=== PATIENT | male | born 1970 | race Caucasian/White ===

== ENCOUNTER 2016-10-05 22:22 | Emergency (ER) | payer BC, OTHER ==
[2016-10-05 22:44] VITALS: BMI 27.7
[2016-10-05 22:54] LABS: BASOPHIL 0.2 % (0-2.0); EOSINOPHIL 0.4 % (0-4.5); MCH 26.2 pg (25.7-33.7); MCHC 31.8 g/dl (32.0-35.9); MEAN CELL VOLUME 82.5 fl (80-96); MEAN PLT VOLUME 8.8 fl (7.5-11.1); NEUTROPHILS 87.1 % (42.8-82.8); PLATELET COUNT 161 K/MM3 (134-434); RDW 17.3 % (11.9-15.9); WHITE BLOOD COUNT 5.7 K/mm3 (4.0-10.0)
--- NOTE | 2016-10-05 22:57 | PDOC ---
History of Present Illness - General Chief Complaint: Chest Pain Stated Complaint: CHEST PAIN/YFD Time Seen by Provider: 10/05/16 22:29 History Source: Patient Exam Limitations: No Limitations - History of Present Illness Initial Comments: 10/05/16 22:53 46yo Male patient w/ PmHx: Heart disease, HLD presents to ED c/o chest pain/ chest tightness. Patient states while working, he did not feel well. He states having chest tightness, and weakness. He reports having 4 bowel movements today which is unusual for him. Patient then went to bed. He got up to use bathroom and felt nauseous, dizzy, chills, lightheaded, numbness down left arm. He called a friend who brought him to ED for evaluation. Patient states his symptoms have since resolved. Denies any other complaints at this time. Patient reports having a full cardiac work-up 1 year ago and was completely normal. Cardiology- Dr. Kwan. Presenting Symptoms: Chest Pain, Dizziness Timing/Duration: reports: intermittent Severity/Quality: reports: tightness Location: reports: substernal Chest Pain Radiation: reports: arms (Left) Activities at Onset: reports: no specific activity Prior Chest Pain/Cardiac Workup: reports: Cardiac Cath, Stress Test. denies: Heart Attack Past History - Travel Traveled outside of the country in the last 30 days: No Close contact w/someone who was outside of country & ill: No - Past Medical History Allergies/Adverse Reactions: Allergies Allergy/AdvReac Type Severity Reaction Status Date / Time No Known Allergies Allergy Verified 10/06/13 11:01 Home Medications: Ambulatory Orders Aspirin [ASA -] 81 mg PO ONCE 09/14/12 Colesevelam HCl [Welchol] 625 mg PO DAILY 09/14/12 Lorazepam [Ativan] 0.5 mg PO TID PRN #9 tablet MDD 3 TAB 10/06/16 Hypercholesterolemia: Yes - Surgical History Neurologic Surgery: Yes (RT SHOULDER) - Psycho/Social/Smoking Cessation Hx Anxiety: No Suicidal Ideation: No Smoking Status: No Smoking History: Never smoked Have you smoked in the past 12 months: No Number of Cigarettes Smoked Daily: 0 Information on smoking cessation initiated: No Hx Alcohol Use: No Drug/Substance Use Hx: No Cardiac Specific PMH - Complaint Specific PMHX Abdominal Aortic Aneurysm: No Angina: No Cardiac Arrhythmia: No Cardiac Stent: No GERD: No Myocardial Infarction: No Pacemaker: No Pulmonary Embolus: No Valvular Heart Disease: No Peripheral Vascular Disease: No Review of Systems - Review of Systems Able to Perform ROS?: Yes Is the patient limited Khmer proficient: No Constitutional: Yes: Chills. No: Fever Respiratory: No: Cough, Shortness of Breath, SOB with Exertion, SOB at Rest, Stridor, Wheezing, Hemoptysis Cardiac (ROS): Yes: Chest Pain, Lightheadedness, Chest Tightness. No: Palpitations, Syncope ABD/GI: Yes: Nausea. No: Constipated, Diarrhea, Poor Appetite, Poor Fluid Intake, Vomiting, Abdominal cramping : No: Burning, Dysuria, Flank Pain, Hematuria Musculoskeletal: No: Back Pain Integumentary: No: Dryness, Erythema, Flushing, Rash, Sweating Neurological: Yes: Numbness, Tingling, Weakness, Dizziness. No: Headache, Paresthesia, Seizure, Tremors, Unsteady Gait, Ataxia Psychiatric: Yes: Anxiety. No: Depression All Other Systems: Reviewed and Negative *Physical Exam - Vital Signs Last Vital Signs Temp Pulse Resp BP Pulse Ox 100.6 F H 86 18 113/61 96 10/06/16 05:55 10/05/16 23:51 10/05/16 23:51 10/05/16 23:51 10/05/16 23:51 - Physical Exam General Appearance: Yes: Nourished, Appropriately Dressed. No: Apparent Distress, Mild Distress, Moderate Distress, Severe Distress Neck: positive: Trachea midline, Normal Thyroid, Supple. negative: Rigid, Decreased range of motion, Stridor, Lymphadenopathy (R), Lymphadenopathy (L) Respiratory/Chest: positive: Lungs Clear, Normal Breath Sounds. negative: Chest Tender, Respiratory Distress, Accessory Muscle Use, Labored Respiration, Rapid RR, Crackles, Rales, Stridor, Wheezing Cardiovascular: positive: Regular Rhythm, Regular Rate. negative: Edema, JVD Gastrointestinal/Abdominal: positive: Normal Bowel Sounds, Soft. negative: Distended, Guarding, Rebound, Tenderness, Hernia, Mass Musculoskeletal: positive: Normal Inspection. negative: CVA Tenderness, Decreased Range of Motion, Vertebral Tenderness Extremity: positive: Normal Capillary Refill, Normal Inspection, Normal Range of Motion. negative: Pedal Edema, Swelling, Calf Tenderness, Erythema, Inflammation Integumentary: positive: Normal Color, Dry, Warm Neurologic: positive: enterostomal nurse II-XII NML intact, Fully Oriented, Alert, Normal Mood/ Affect, Normal Response, Motor Strength 09/11 ED Treatment Course - LABORATORY CBC & Chemistry Diagram: 10/05/16 22:25 10/05/16 22:25 - ADDITIONAL ORDERS Additional order review: Laboratory Results 10/06/16 10/06/16 10/05/16 05:44 01:15 23:00 INR Sodium Potassium Chloride Carbon Dioxide Anion Gap BUN Creatinine Creat Clearance w eGFR Random Glucose Calcium Total Bilirubin AST ALT Alkaline Phosphatase Creatine Kinase 138 Creatine Kinase Index CK-MB (CK-2) CK-MB (CK-2) Rel Index Troponin I < 0.02 Total Protein Albumin Total Amylase 76 Lipase 177 Urine Color Straw Urine Appearance Clear Urine pH 6.0 Urine Protein Negative Urine Glucose (UA) Negative Urine Ketones Trace H Urine Blood Negative Urine Nitrite Negative Urine Bilirubin Negative Urine Urobilinogen Negative Ur Leukocyte Esterase Negative 10/05/16 10/05/16 10/05/16 22:25 22:25 22:25 INR 1.04 Sodium 141 Potassium 4.1 Chloride 104 Carbon Dioxide 32 Anion Gap 5 L BUN 22 H Creatinine 1.3 Creat Clearance w eGFR 59.43 Random Glucose 124 H Calcium 8.5 Total Bilirubin 0.3 AST 17 ALT 25 Alkaline Phosphatase 53 Creatine Kinase 224 Creatine Kinase Index 0.8 CK-MB (CK-2) 1.846 CK-MB (CK-2) Rel Index Cancelled Troponin I < 0.02 Total Protein 6.7 Albumin 3.8 Total Amylase Lipase Urine Color Urine Appearance Urine pH Urine Protein Urine Glucose (UA) Urine Ketones Urine Blood Urine Nitrite Urine Bilirubin Urine Urobilinogen Ur Leukocyte Esterase 10/05/16 22:25 RBC 5.35 MCV 82.5 MCHC 31.8 L RDW 17.3 H MPV 8.8 Neutrophils % 87.1 H Lymphocytes % 6.8 L Monocytes % 5.5 Eosinophils % 0.4 Basophils % 0.2 - RADIOLOGY Radiology Studies Ordered: Category Date Time Status ABDOMEN & PELVIS CT WITH CONTR [CT] Stat CT Scan 10/06/16 01:40 Taken CHEST CTA [CT] Stat CT Scan 10/06/16 03:12 Taken - Medications Given in the ED: ED Medications Discontinued Medications Generic Name Dose Route Start Last Admin Trade Name Freq PRN Reason Stop Dose Admin Acetaminophen 1,000 mg 10/06/16 01:16 10/06/16 01:25 Tylenol - PO 10/06/16 01:17 1,000 mg ONCE ONE Administration Sodium Chloride 1,000 mls @ 1,000 mls/hr 10/05/16 23:01 10/05/16 23:48 Normal Saline - IV 10/06/16 00:00 1,000 mls/hr ASDIR STA Administration Lorazepam 1 mg 10/05/16 23:01 10/05/16 23:22 Ativan - PO 10/05/16 23:02 1 mg ONCE ONE Administration Morphine Sulfate 2 mg 10/06/16 03:12 10/06/16 03:16 Morphine Injection - IVPUSH 10/06/16 03:13 2 mg ONCE ONE Administration Ondansetron HCl 4 mg 10/05/16 23:01 10/05/16 23:48 Zofran Injection IVPB 10/05/16 23:02 4 mg ONCE ONE Administration *DC/Admit/Observation/Transfer Diagnosis at time of Disposition: Atypical chest pain, Gastroenteritis - Discharge Dispostion Disposition: HOME Condition at time of disposition: Improved Admit: No - Prescriptions Prescriptions: Lorazepam [Ativan] 0.5 mg PO TID PRN #9 tablet MDD 3 TAB PRN Reason: Anxiety - Patient Instructions Printed Discharge Instructions: DI for Atypical Chest Pain Additional Instructions: FOLLOW UP WITH YOUR PRIMARY CARE PROVIDER THIS WEEK. CALL TO SCHEDULE APPOINTMENT. MOTRIN OR TYLENOL FOR PAIN NEEDED. DRINK PLENTY FLUIDS AND REST. NO WORK X 2 DAYS. ALSO, FOLLOW UP WITH YOUR ROUTE DELIVERY DRIVER. AVOID ALCOHOL, SPICY FOODS, AND FOODS WITH CAFFEINE. Print Language: ARMENIAN - Post Discharge Activity Work/School Note: Back to Work
[2016-10-05] MEDS ORDERED: SODIUM CHLORIDE 1,000 ML IV STA (23:01)
[2016-10-05] MEDS ORDERED: LORazepam 1 MG TABLET PO ONE (23:01)
[2016-10-05] MEDS ORDERED: ONDANSETRON 4 MG/2 ML VIAL IVPB ONE (23:01)
[2016-10-05 23:06] LABS: INR 1.04 (0.82-1.09); PROTHROMBIN TIME (PATIENT) 11.5 SEC (9.98-11.88)
[2016-10-05] MEDS ORDERED: LORazepam 0.5 MG TABLET ONE (23:16)
[2016-10-05 23:20] LABS: ALBUMIN 3.8 g/dl (3.4-5.0); ANION GAP 5 (8-16); BILIRUBIN,TOTAL 0.3 mg/dL (0.2-1.0); CALCIUM 8.5 mg/dL (8.5-10.1); CO2 32 mmol/L (21-32); COCKROFT - GAULT 95.66; CREATININE 1.3 mg/dL (0.7-1.3); GLUCOSE,RANDOM 124 mg/dL (74-106); SGOT/AST 17 U/L (15-37); SGPT/ALT 25 U/L (12-78); TOT PROT 6.7 g/dl (6.4-8.2)
[2016-10-05 23:22] LABS: ALK PHOS 53 U/L (45-117); TROPONIN I < 0.02 ng/ml (0.00-0.05)
[2016-10-05 23:30] LABS: AMYLASE 76 U/L (25-115)
[2016-10-05] MEDS ORDERED: ONDANSETRON 4 MG/2 ML VIAL ONE (23:37)
[2016-10-06] MEDS ORDERED: ACETAMINOPHEN 500 MG TABLET (FP) PO ONE (01:16)
[2016-10-06] MEDS ORDERED: ACETAMINOPHEN 325 MG TABLET (FP) ONE (01:18)
[2016-10-06 01:22] LABS: URINE APPEARANCE CLEAR; URINE BILIRUBIN NEGATIVE (NEGATIVE); URINE BLOOD NEGATIVE (NEGATIVE); URINE COLOR STRAW; URINE GLUCOSE (UA) NEGATIVE (NEGATIVE); URINE KETONE TRACE (NEGATIVE); URINE LEUK ESTERASE NEGATIVE (NEGATIVE); URINE NITRITE NEGATIVE (NEGATIVE); URINE PROTEIN NEGATIVE (NEGATIVE); URINE UROBILINOGEN NEGATIVE E.U./dl (0.2-1.0)
[2016-10-06] MEDS ORDERED: morphine CARPU-JECT 2 MG/1 ML DISP.SYRIN ONE (02:57)
[2016-10-06] MEDS ORDERED: morphine CARPU-JECT 2 MG/1 ML DISP.SYRIN IVPUSH ONE (03:12)
[2016-10-06 05:56] VITALS: TEMP 100.6
[2016-10-06] MEDS ORDERED: IBUPROFEN 400 MG TABLET (FP) PO ONE ×2 (06:02→06:31)
[2016-10-06 06:13] LABS: TROPONIN I < 0.02 ng/ml (0.00-0.05)
[2016-10-06 06:37] VITALS: BP 125/79; PULSE 88
--- NOTE | 2016-10-06 14:08 | EKG ---
Test Reason : Blood Pressure : / mmHG Vent. Rate : 068 BPM Atrial Rate : 068 BPM P-R Int : 154 ms QRS Dur : 086 ms QT Int : 372 ms P-R-T Axes : 046 067 024 degrees QTc Int : 395 ms NORMAL SINUS RHYTHM MINIMAL VOLTAGE CRITERIA FOR LVH, MAY BE NORMAL VARIANT NONSPECIFIC T WAVE ABNORMALITY ABNORMAL ECG WHEN COMPARED WITH ECG OF 29-OCT-2015 14:20, Confirmed by CAIN TALBOT, MARISOL ([id number]) on 10/06/2016 2:08:34 PM Referred By: Confirmed By:MARISOL BARLOW MD
== END 2016-10-06 09:46 | disposition home or self-care (01) ==
LOC: JER 22:22
PROC: 3E033NZ Introduction of Analgesics, Hypnotics, Sedatives into Peripheral Vein, Percutaneous Approach (ICD-10-PCS; principal; 2016-10-05)
PROC: 3E033GC Introduction of Other Therapeutic Substance into Peripheral Vein, Percutaneous Approach (ICD-10-PCS; 2016-10-05)
DX: R07.89 Other chest pain (principal); K52.9 Noninfective gastroenteritis and colitis, unspecified
CPT/HCPCS: 36415; 71010-TC; 71275-TC; 74177-TC; 80053; 81003; 82150; 82550; 82553; 83605; 83690; 84484; 85025; 85610; 93005; 93010; 99284-25

== ENCOUNTER 2021-03-23 14:31 | Inpatient (IN) | payer BC, OTHER ==
[2021-03-23 14:39] VITALS: BMI 27.0
[2021-03-23] MEDS ORDERED: ACETAMINOPHEN 325 MG TABLET (FP) PO ONE (15:20)
[2021-03-23] MEDS ORDERED: morphine CARPU-JECT 4 MG/1 ML DISP.SYRIN IVPUSH ONE (15:26)
[2021-03-23] MEDS ORDERED: ONDANSETRON 4 MG/2 ML VIAL IVPUSH ONE (15:43)
[2021-03-23] MEDS ORDERED: ONDANSETRON 4 MG/2 ML VIAL ONE (15:44)
[2021-03-23] MEDS ORDERED: morphine SULFATE 4 MG/ML VIAL ONE ×2 (15:44→17:25)
[2021-03-23 16:05] LABS: BASO % 0.6 % (0-2.0); EOS % 0.3 % (0-4.5); HEMATOCRIT 42.4 % (35.4-49); HEMOGLOBIN 14.5 GM/dL (11.7-16.9); LYMPH % 13.9 % (8-40); MCH 30.7 pg (25.7-33.7); MCHC 34.3 g/dl (32.0-35.9); MEAN CELL VOLUME 89.7 fl (80-96); MEAN PLT VOLUME 9.4 fl (7.5-11.1); MONO % 5.7 % (3.8-10.2); NEUT % 79.5 % (42.8-82.8); PLATELET COUNT 250 10^3/uL (134-434); RBC 4.72 M/mm3 (4.00-5.60)
[2021-03-23] MEDS ORDERED: SODIUM CHLORIDE 1,000 ML IV STA (16:06)
[2021-03-23 16:21] LABS: ALBUMIN 4.1 g/dl (3.4-5.0); BLOOD UREA NITROGEN 16.7 mg/dL (7-18); CALCIUM 9.4 mg/dL (8.5-10.1)
[2021-03-23 16:24] LABS: CREATININE 1.8 mg/dL (0.55-1.3)
[2021-03-23 16:26] LABS: BILIRUBIN,TOTAL 0.2 mg/dL (0.2-1); TOT PROT 7.6 g/dl (6.4-8.2)
[2021-03-23] MEDS ORDERED: morphine CARPU-JECT 2 MG/1 ML DISP.SYRIN IVPUSH ONE (17:22)
[2021-03-23 17:23] LABS: EPI CELLS 11 /uL (0-25.1); HYALINE CASTS 17 /uL (0-3.1); URINE APPEARANCE TURBID; URINE BILIRUBIN 1+ (NEGATIVE); URINE COLOR RED; URINE GLUCOSE (UA) NEGATIVE (NEGATIVE); URINE KETONE NEGATIVE (NEGATIVE); URINE LEUK ESTERASE 1+ (NEGATIVE); URINE NITRITE POSITIVE (NEGATIVE); URINE PROTEIN 2+ (NEGATIVE); URINE RBC 1184 /uL (0-23.9); URINE UROBILINOGEN 0.2 mg/dL (0.2-1.0); URINE WBC 43 /uL (0-25.8)
[2021-03-23] MEDS ORDERED: CEFTRIAXONE 1,000 MG in DEXTROSE 5%-WATER - 50 ML IVPB ONE (17:28)
[2021-03-23] MEDS ORDERED: CEFTRIAXONE 1 GM/50 ML BAG ONE (17:44)
[2021-03-23 17:58] LABS: URINE BACTERIA 0 /uL (0-1359)
[2021-03-23] MEDS ORDERED: TAMSULOSIN HCL 0.4 MG CAP PO ONE (19:25)
[2021-03-23] MEDS ORDERED: morphine CARPU-JECT 2 MG/1 ML DISP.SYRIN IVPUSH PRN (19:26)
[2021-03-23] MEDS ORDERED: ACETAMINOPHEN 1000 MG/100 ML VIAL IVPB PRN (19:26)
[2021-03-23] MEDS ORDERED: TAMSULOSIN HCL 0.4 MG CAP ONE (19:52)
[2021-03-23] MEDS ORDERED: morphine SULFATE 4 MG/ML VIAL IVPUSH PRN (21:08)
[2021-03-23] MEDS ORDERED: LACTATED RINGERS SOLUTION 1,000 ML/1,000 ML INFUS.BAG IV SCH (21:15)
[2021-03-23] MEDS ORDERED: SENNOSIDES 8.6MG TABLET (FP) PO ONE (21:31)
[2021-03-23] MEDS ORDERED: METOPROLOL TARTRATE 25 MG TABLET (FP) ONE (21:31)
[2021-03-23] MEDS ORDERED: SENNOSIDES 8.6MG TABLET (FP) PO SCH (22:00)
[2021-03-23] MEDS: METOPROLOL TARTRATE 25 MG TABLET (FP) PO SCH (23:18)
[2021-03-24] MEDS ORDERED: HEPARIN NA (PORCINE) 5,000 UNITS/ML 1ML VIAL SQ SCH (02:00)
[2021-03-24] MEDS ORDERED: TAMSULOSIN HCL 0.4 MG CAP PO ONE (06:57)
[2021-03-24] MEDS ORDERED: ASPIRIN 81 MG CHEWABLE TABLETS PO ONE (07:34)
[2021-03-24 08:31] LABS: HEMATOCRIT 35.4 % (35.4-49); HEMOGLOBIN 12.4 GM/dL (11.7-16.9); MCH 30.9 pg (25.7-33.7); MCHC 34.9 g/dl (32.0-35.9); MEAN CELL VOLUME 88.5 fl (80-96); MEAN PLT VOLUME 9.3 fl (7.5-11.1); PLATELET COUNT 194 10^3/uL (134-434); RDW 13.8 % (11.9-15.9)
[2021-03-24 09:04] LABS: CALCIUM 8.6 mg/dL (8.5-10.1)
[2021-03-24 09:05] LABS: BLOOD UREA NITROGEN 12.8 mg/dL (7-18)
[2021-03-24 09:08] LABS: CREATININE 1.4 mg/dL (0.55-1.3)
[2021-03-24 09:09] LABS: BILIRUBIN,TOTAL 0.4 mg/dL (0.2-1); TOT PROT 5.9 g/dl (6.4-8.2)
[2021-03-24] MEDS ORDERED: DEXTROSE 5%-WATER - 50 ML IVPB ONE (09:20)
[2021-03-24] MEDS ORDERED: cefTRIAXone SODIUM 1 GM VIAL ONE (09:20)
[2021-03-24] MEDS: METOPROLOL TARTRATE 25 MG TABLET (FP) PO SCH ×2 (09:24→21:36)
[2021-03-24] MEDS ORDERED: ASPIRIN COATED 81 MG TABLET.EC PO SCH (10:00)
[2021-03-24] MEDS ORDERED: CEFTRIAXONE 1 GM in DEXTROSE 5%-WATER - 50 ML IVPB SCH (10:00)
[2021-03-24] MEDS ORDERED: ASPIRIN 81 MG CHEWABLE TABLETS PO SCH (10:00)
[2021-03-24] MEDS ORDERED: ONDANSETRON 4 MG/2 ML VIAL IVPUSH PRN ×2 (13:24→15:17)
[2021-03-24] MEDS ORDERED: LACTATED RINGERS SOLUTION 1,000 ML IV SCH ×2 (13:30→15:17)
[2021-03-24] MEDS ORDERED: MIDAZOLAM HCL 2 MG/2 ML SINGLE DOSE VIAL ONE (13:33)
[2021-03-24] MEDS ORDERED: PROPOFOL 20 ML ONE (13:33)
[2021-03-24] MEDS ORDERED: DEXAMETHASONE SOD PHOSPHATE 4 MG/1 ML VIAL ONE (14:26)
[2021-03-24] MEDS ORDERED: ACETAMINOPHEN 1000 MG/100 ML VIAL IVPB PRN ×2 (15:17→21:39)
[2021-03-24] MEDS: LACTATED RINGERS SOLUTION 1,000 ML/1,000 ML INFUS.BAG IV SCH (16:01)
[2021-03-24] MEDS: morphine SULFATE 4 MG/ML VIAL IVPUSH PRN (18:03)
[2021-03-24] MEDS: SENNOSIDES 8.6MG TABLET (FP) PO SCH (21:36)
[2021-03-25] MEDS: morphine SULFATE 4 MG/ML VIAL IVPUSH PRN ×3 (03:03→10:57)
[2021-03-25] MEDS: LACTATED RINGERS SOLUTION 1,000 ML/1,000 ML INFUS.BAG IV SCH (07:55)
[2021-03-25] MEDS ORDERED: cefTRIAXone SODIUM 1 GM VIAL ONE (09:29)
[2021-03-25] MEDS ORDERED: DEXTROSE 5%-WATER - 50 ML IVPB ONE (09:29)
[2021-03-25] MEDS: CEFTRIAXONE 1 GM in DEXTROSE 5%-WATER - 50 ML IVPB SCH (09:30)
[2021-03-25] MEDS: METOPROLOL TARTRATE 25 MG TABLET (FP) PO SCH ×2 (09:30→21:44)
[2021-03-25] MEDS: ASPIRIN COATED 81 MG TABLET.EC PO SCH (09:30)
[2021-03-25 09:58] LABS: BASO % 0.4 % (0-2.0); EOS % 0.2 % (0-4.5); HEMOGLOBIN 12.1 GM/dL (11.7-16.9); MCH 30.7 pg (25.7-33.7); MCHC 34.5 g/dl (32.0-35.9); MEAN CELL VOLUME 88.9 fl (80-96); MEAN PLT VOLUME 9.5 fl (7.5-11.1); MONO % 5.1 % (3.8-10.2); NEUT % 76.3 % (42.8-82.8); PLATELET COUNT 212 10^3/uL (134-434); RBC 3.94 M/mm3 (4.00-5.60); WHITE BLOOD COUNT 9.3 K/mm3 (4.0-10.0)
[2021-03-25] MEDS ORDERED: ASPIRIN COATED 81 MG TABLET.EC PO SCH (10:00)
[2021-03-25 11:04] LABS: CREATININE 1.3 mg/dL (0.55-1.3); PHOSPHOROUS 3.1 mg/dL (2.5-4.9)
[2021-03-25 11:05] LABS: BILIRUBIN,TOTAL 0.4 mg/dL (0.2-1)
[2021-03-25 11:06] LABS: BLOOD UREA NITROGEN 16.2 mg/dL (7-18); CALCIUM 8.7 mg/dL (8.5-10.1); MAGNESIUM 1.9 mg/dL (1.8-2.4)
[2021-03-25] MEDS: ENOXAPARIN NA (PORCINE) 40 MG/0.4 ML DISP.SYRIN SQ SCH (13:49)
[2021-03-25] MEDS: oxyCODONE HCL 5 MG TABLET PO PRN ×2 (16:29→21:42)
[2021-03-25] MEDS: SENNOSIDES 8.6MG TABLET (FP) PO SCH (21:44)
[2021-03-26] MEDS: oxyCODONE HCL 5 MG TABLET PO PRN (04:34)
[2021-03-26] MEDS ORDERED: SODIUM PHOSPHATE/NA BIPHOS 133 ML ENEMA RC ONE (08:48)
[2021-03-26] MEDS ORDERED: cefTRIAXone SODIUM 1 GM VIAL ONE (09:38)
[2021-03-26] MEDS ORDERED: DEXTROSE 5%-WATER - 50 ML IVPB ONE (09:39)
[2021-03-26] MEDS: METOPROLOL TARTRATE 25 MG TABLET (FP) PO SCH (09:56)
[2021-03-26] MEDS: ASPIRIN COATED 81 MG TABLET.EC PO SCH (09:56)
[2021-03-26] MEDS: CEFTRIAXONE 1 GM in DEXTROSE 5%-WATER - 50 ML IVPB SCH (09:59)
[2021-03-26] MEDS: ENOXAPARIN NA (PORCINE) 40 MG/0.4 ML DISP.SYRIN SQ SCH (09:59)
[2021-03-26] MEDS ORDERED: PHENAZOPYRIDINE HCL 100 MG TABLET (FP) PO ONE (13:00)
[2021-03-26 13:29] VITALS: BP 139/80; PULSE 53; TEMP 98.5
[2021-04-04 09:11] LABS: SIZE 3X3
[2021-04-04 09:12] LABS: CA OXALATE MONOHYDR. 80%; WEIGHT 33
== END 2021-03-26 15:38 | disposition home or self-care (01) | DRG 657 ==
LOC: JER 14:31 → JERBED 18:31 → J6S 21:52
PROVIDERS: ADMIT Internal Medicine; ATTEND Internal Medicine
PROC: 0TC68ZZ Extirpation of Matter from Right Ureter, Via Natural or Artificial Opening Endoscopic (ICD-10-PCS; principal; 2021-03-24 13:00)
PROC: 0T768DZ Dilation of Right Ureter with Intraluminal Device, Via Natural or Artificial Opening Endoscopic (ICD-10-PCS; 2021-03-24 13:00)
PROC: 0TBB8ZX Excision of Bladder, Via Natural or Artificial Opening Endoscopic, Diagnostic (ICD-10-PCS; 2021-03-24 13:00)
PROC: 0TJB8ZZ Inspection of Bladder, Via Natural or Artificial Opening Endoscopic (ICD-10-PCS; 2021-03-24 13:00)
DX: C67.9 Malignant neoplasm of bladder, unspecified (principal); N13.6 Pyonephrosis; N17.9 Acute kidney failure, unspecified; I25.10 Atherosclerotic heart disease of native coronary artery without angina pectoris; E78.5 Hyperlipidemia, unspecified; I12.9 Hypertensive chronic kidney disease with stage 1 through stage 4 chronic kidney disease, or unspecified chronic kidney disease; N18.9 Chronic kidney disease, unspecified; Z95.5 Presence of coronary angioplasty implant and graft
CPT/HCPCS: 36415; 74176-TC; 76000-TC-FY; 80053; 81003; 82360; 83036; 83735; 84100; 85025; 85027; 87086; 88300-TC; 88305-TC; 93005; 93010; 94760; 99285-25; C9803; J0131; U0003; U0005

== ENCOUNTER 2021-05-06 04:35 | Day surgery (SDC) | payer BC ==
[2021-05-05 17:09] VITALS: BMI 27.7
[2021-05-06] MEDS ORDERED: PROPOFOL 20 ML ONE ×3 (12:42)
[2021-05-06] MEDS ORDERED: LIDOCAINE HCL/PF 2% SDV 5ML VIAL ONE (12:42)
[2021-05-06] MEDS ORDERED: KETOROLAC TROMETHAMINE 30 MG/1 ML VIAL ONE (12:42)
[2021-05-06] MEDS ORDERED: DEXAMETHASONE SOD PHOSPHATE 4 MG/1 ML VIAL ONE (12:42)
[2021-05-06] MEDS ORDERED: ceFAZolin SODIUM 1 GM VIAL ONE (12:42)
[2021-05-06] MEDS ORDERED: MIDAZOLAM HCL 2 MG/2 ML SINGLE DOSE VIAL ONE (12:42)
[2021-05-06] MEDS ORDERED: SODIUM CHLORIDE 0.9% P/F 10 ML VIAL IJ ONE (12:42)
[2021-05-06] MEDS ORDERED: ONDANSETRON 4 MG/2 ML VIAL IVPUSH PRN (12:51)
[2021-05-06] MEDS ORDERED: oxyCODONE HCL 5 MG TABLET PO PRN ×2 (12:51)
[2021-05-06] MEDS ORDERED: LACTATED RINGERS SOLUTION 1,000 ML IV SCH (13:00)
[2021-05-06] MEDS ORDERED: SUCCINYLCHOLINE CHLORIDE 200 MG/10 ML SYRINGE ONE (13:04)
[2021-05-06] MEDS ORDERED: ceFAZolin SODIUM 1 GM VIAL IVPB ONE (13:05)
[2021-05-06 15:22] VITALS: BP 140/90; PULSE 62; TEMP 98
== END 2021-05-06 15:15 | disposition home or self-care (01) ==
LOC: JASU-SURG 04:35
PROVIDERS: ATTEND Urology
PROC: 0TBB8ZX Excision of Bladder, Via Natural or Artificial Opening Endoscopic, Diagnostic (ICD-10-PCS; principal; 2021-05-06 12:00)
DX: C67.9 Malignant neoplasm of bladder, unspecified (principal)
CPT/HCPCS: 93005; 93010; 94760